=== PATIENT | female | born 1935 | race Caucasian/White ===

== ENCOUNTER 2019-01-20 12:21 | Outpatient (CLI) | payer MEDICARE, OTHER | END 2019-01-20 12:22 | disposition critical access hospital (66) | LOC: EMS 12:21 | PROVIDERS: ATTEND Surgery | DX: M54.2 Cervicalgia (principal); M25.562 Pain in left knee; W01.198A Fall on same level from slipping, tripping and stumbling with subsequent striking against other object, initial encounter; Y93.01 Activity, walking, marching and hiking; Y92.008 Other place in unspecified non-institutional (private) residence as the place of occurrence of the external cause | CPT/HCPCS: A0425; A0429 ==

== ENCOUNTER 2019-01-20 13:02 | Emergency (ER) | payer MEDICARE, OTHER ==
--- NOTE | 2019-01-20 13:02 | ED Physician Documentation ---
PD HPI Fall - Stated complaint Stated Complaint: GLF - History obtained from History obtained from: Patient - History of Present Illness Mechanism of injury: Tripped Fall distance: Standing position Where injury occurred: Other ([place]) Timing - onset: Today (Just prior to arrival) Injury(ies) location: Head, Neck, Left Uppper Extremity (Shoulder), Left Lower Extremity (Knee) Quality of pain: Pain Associated symptoms: No: LOC, AMS, Neck pain, Paresthesias, Dyspnea, Nausea / vomiting Similar symptoms before: Has not had sx before Recently seen: Not recently seen - Additional information Additional information: This is an 83-year-old woman who presents by ambulance after walking through a [place] and she stumbled over a block that was on the floor. Caused her to fall forward hitting the support post for the carport on the left side of her head, neck and shoulder. She also fell onto the left knee. She did not pass out. She was unable to get up off the ground so the ambulance was summoned and they assisted her up where she was able to stand on her feet but she felt very dizzy. Did not pass out. She has pain in her left knee and her left hip hurts a little but she says that a chronic problem and it needs to be replaced but she does not want to do that. She also thinks the ear ring that she was wearing cut her neck behind the ear. She denies chest pain, abdominal pain, nausea, palpitations or shortness of breath. Patient has no numbness or tingling into the arms or legs. She does take baby aspirin daily. She also started a prep today with a liquid diet for colonoscopy in 2 days. She is uncertain when her last tetanus vaccine is. 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".) Cardiac: denies: Chest pain / pressure, Palpitations Respiratory: denies: Dyspnea GI: denies: Abdominal Pain, Nausea, Vomiting, Diarrhea Musculoskeletal: denies: Neck pain Neurologic: denies: Generalized weakness, Focal weakness, Numbness, Syncope, Headache PD PAST MEDICAL HISTORY - Present Medications Home Medications: Ambulatory Orders Medication Instructions Recorded Confirmed Alendronate [Fosamax] 70 mg PO Q7D 01/20/19 01/20/19 Atenolol 25 mg PO 01/20/19 Furosemide 20 mg PO 01/20/19 Mecobalamin [B-12] 5,000 mcg PO 01/20/19 01/20/19 amLODIPine [Norvasc] 5 mg PO ONCE 01/20/19 01/20/19 raNITIdine [Zantac] 150 mg PO DAILY 01/20/19 01/20/19 - Allergies Allergies/Adverse Reactions: Allergies Allergy/AdvReac Type Severity Reaction Status Date / Time morphine Allergy Rash Verified 01/20/19 13:14 Sulfa (Sulfonamide Allergy Hives Verified 01/20/19 13:14 Antibiotics) PD ED PE NORMAL - Vitals Vital signs reviewed: Yes - General General: Alert and oriented X 3, No acute distress, Well developed/nourished - HEENT HEENT: Atraumatic, PERRL, EOMI, Moist mucous membranes - Neck Neck: Other (Remained in cervical collar until imaging could be obtained) - Cardiac Cardiac: RRR - Respiratory Respiratory: No respiratory distress - Abdomen Abdomen: Soft - Derm Derm: Normal color, Other (Less than 1 cm superficial laceration behind the left earlobe. There is no active bleeding or obvious bruising. There is bruising to the anterior left shoulder over the AC joint. There is bruising and abrasion to the left knee. Contusions to the dorsal aspect of the left hand and fingers with minor abrasions.) - Extremities Extremities: Other (Swelling and tenderness about the left knee. Limited range of motion about the left shoulder (she states that she has chronic degeneration in that shoulder but does not want a replacement). There is no bony tenderness in the hand or wrist.) - Neuro Neuro: Alert and oriented X 3, No motor deficit, No sensory deficit, Normal speech Eye Opening: Spontaneous Motor: Obeys Commands Verbal: Oriented GCS Score: 15 - Psych Psych: Normal mood, Normal affect Results - Vitals Vitals: Vital Signs - 24 hr 01/20/19 13:08 Temperature 36.5 C Heart Rate 55 L Respiratory 22 Rate Blood Pressure 176/67 H O2 Saturation 97 Oxygen O2 Source Room air - Labs Labs: Laboratory Tests 01/20/19 01/20/19 01/20/19 13:12 13:39 13:39 WBC 5.5 RBC 4.52 Hgb 14.1 Hct 42.5 MCV 94.2 MCH 31.3 H MCHC 33.2 RDW 13.2 Plt Count 169 MPV 8.0 Neut # (Auto) 3.7 Lymph # (Auto) 1.0 L [place] # (Auto) 0.5 Eos # (Auto) 0.3 Baso # (Auto) 0.0 Absolute Nucleated RBC 0.00 Nucleated RBC % 0.0 Sodium 139 Potassium 4.2 Chloride 108 Carbon Dioxide 21 Anion Gap 10.0 BUN 24 H Creatinine 1.0 Estimated GFR (MDRD) 53 L Glucose 120 H Calcium 11.5 H Urine Color COLORLESS Urine Clarity CLEAR Urine pH 6.0 Ur Specific [place] <=1.005 Urine Protein NEGATIVE Urine Glucose (UA) NEGATIVE Urine Ketones NEGATIVE Urine Occult Blood NEGATIVE Urine Nitrite POSITIVE H Urine Bilirubin NEGATIVE Urine Urobilinogen 0.2 (NORMAL) Ur Leukocyte Esterase MODERATE H Urine RBC 0-5 Urine WBC 6-10 H Ur Squamous Epith Cells FEW Squamous Urine Bacteria Few Ur Microscopic Review INDICATED Urine Culture Comments INDICATED PD MEDICAL DECISION MAKING - ED course Complexity details: re-evaluated patient, d/w patient, d/w family ED course: Obtained a head CT because the patient is on aspirin. CT was negative. C-spine CT was negative. X-rays of left shoulder and knee both showed significant degenerative changes. There was concern that there might be some peribronchial cuffing seen in the lungs on the chest x-ray. The patient says she has a chronic cough she is not feeling short of breath and she has a history of Sjogren's syndrome. I did not feel that specific chest x-ray was needed today. She was offered Tylenol for pain but the son did not want to wait the "20 minutes" it would take to get it so they are being discharged home. The patient has stood and ambulated on the leg without any difficulty. Departure - Departure Disposition: 01 Home, Self Care Clinical Impression: Multiple abrasions Contusion of shoulder, left Qualifiers: Encounter type: initial encounter Qualified Code(s): S40.012A - Contusion of left shoulder, initial encounter Contusion, fingers Qualifiers: Encounter type: initial encounter Finger: unspecified finger Damage to nail status: without damage Qualified Code(s): S60.00XA - Contusion of unspecified finger without damage to nail, initial encounter Condition: Good Instructions: ED Contusion Upper Ext, ED Contusion Lower Ext Follow-Up: doctor,your [Other] (Follow-up with your doctor at the [facility] in [place] as needed.) Comments: Keep the wounds clean and covered. May apply a small bit of antibiotic ointment. Ice can help with any pain or swelling. Tylenol if needed for pain. Follow-up primary care provider if needed.
[2019-01-20 13:23] LABS: BILIRUBIN,URINE NEGATIVE (NEGATIVE); GLUCOSE, URINE (UA) NEGATIVE (NEGATIVE); KETONES,URINE (UA) NEGATIVE (NEGATIVE); NITRITE,URINE POSITIVE (NEGATIVE); OCCULT BLOOD,URINE NEGATIVE (NEGATIVE); PROTEIN,URINE NEGATIVE (NEGATIVE); UROBILINOGEN,URINE 0.2 (NORMAL) E.U./dL (NORMAL)
[2019-01-20 13:24] LABS: CLARITY,URINE CLEAR (CLEAR); LEUKOCYTE ESTERASE, URINE MODERATE (NEGATIVE)
[2019-01-20 13:32] LABS: RBC,URINE 0-5 /HPF (0-5)
[2019-01-20 13:33] LABS: BACTERIA,URINE Few /HPF (None Seen); SQUAMOUS EPITHELIAL CELL,UR FEW Squamous (<= Few)
[2019-01-20 13:43] LABS: BASOPHILS % (AUTO) 0.7 %; EOSINOPHILS # (AUTO) 0.3 10^3/uL (0.0-0.7); EOSINOPHILS % (AUTO) 4.9 %; HGB - HEMOGLOBIN 14.1 g/dL (12.0-16.0); LYMPHOCYTES % (AUTO) 18.2 %; MEAN CORPUSCULAR HEMOGLOBIN 31.3 pg (27.0-31.0); MEAN CORPUSCULAR HGB CONC 33.2 g/dL (32.0-36.0); MEAN CORPUSCULAR VOLUME 94.2 fL (81.0-99.0); MONOCYTES # (AUTO) 0.5 10^3/uL (0.0-1.0); MONOCYTES % (AUTO) 9.3 %; NEUTROPHILS # (AUTO) 3.7 10^3/uL (1.5-6.6); NEUTROPHILS % (AUTO) 66.9 %; PLT - PLATELET COUNT 169 10^3/uL (130-450); RED BLOOD COUNT 4.52 10^6/uL (4.20-5.40); RED CELL DISTRIBUTION WIDTH 13.2 % (12.0-15.0); WHITE BLOOD COUNT 5.5 x10^3/uL (4.8-10.8)
[2019-01-20 13:51] LABS: CALCIUM 11.5 mg/dL (8.5-10.3)
--- NOTE | 2019-01-20 14:04 | CT Report ---
Reason: fall on blood thinners Procedure Date: 01/20/2019 Accession Number: [id number] / [id number] Procedure: CT - HEAD WO CPT Code: FULL RESULT: EXAM: CT HEAD EXAM DATE: 01/20/2019 01:49 PM. CLINICAL HISTORY: Fall, on blood thinners. COMPARISON: None. TECHNIQUE: Multiaxial CT images were obtained from the foramen magnum to the vertex. Reformats: Sagittal and coronal. IV contrast: None. In accordance with CT protocol optimization, one or more of the following dose reduction techniques were utilized for this exam: automated exposure control, adjustment of mA and/or KV based on patient size, or use of iterative reconstructive technique. FINDINGS: Parenchyma: No intraparenchymal hemorrhage. No evidence of mass, midline shift. Murray-white differentiation is distinct. Extraaxial Spaces: Normal for age. No subdural or epidural collections identified. Ventricles: Normal in size and position. Sinuses and Orbits: Sinuses demonstrate mucoperiosteal thickening in both maxillary sinuses as well as opacification of the right ethmoid air cells. The patient is status post endoscopic sinus surgery. Meatus to the right frontal sinus is opacified. Mastoid air cells are clear. Orbits are unremarkable. Bones: No evidence of fracture or calvarial defect. Other: None. IMPRESSION: Chronic sinus disease. No acute intracranial abnormality. RADIA
--- NOTE | 2019-01-20 14:08 | CT Report ---
Reason: trauma Procedure Date: 01/20/2019 Accession Number: [id number] / [id number] Procedure: CT - CERVICAL SPINE WO CPT Code: FULL RESULT: EXAM: CT CERVICAL SPINE WITHOUT CONTRAST DATE: 01/20/2019 01:50 PM. HISTORY: Trauma. Fall on blood thinners. COMPARISONS: None. TECHNIQUE: Thin-section axial images were acquired of the cervical spine without contrast. Post-processing: Coronal and sagittal reformats. Other: None. In accordance with CT protocol optimization, one or more of the following dose reduction techniques were utilized for this exam: automated exposure control, adjustment of mA and/or KV based on patient size, or use of iterative reconstructive technique. FINDINGS: Alignment: There is dextroconvex cervical scoliosis as well as 2 mm of anterolisthesis of C3 on C4 and 2 mm of anterolisthesis of C7 on T1. Bones: No fracture or bone lesion. Interspace Levels/Facets: C1-C2: Mild degenerative changes, no central canal stenosis. C2-C3: No osseous foraminal stenosis, no central canal stenosis. Complete loss of disk space height. C3-C4: Essentially complete loss of disk space height with moderate narrowing of the osseous neural foramen on the left. No central canal stenosis. C4-C5: Complete loss of disk space height, no central canal stenosis and mild narrowing of the osseous neural foramen bilaterally. C5-C6: Mild to moderate narrowing of the right neural foramen with no significant narrowing of the right neural foramen and no narrowing of the central canal. Complete loss of disk space height. C6-C7: Complete loss of disk space height without central canal stenosis with mild bilateral narrowing of the osseous neural foramen. C7-T1: No central canal or neural foraminal narrowing. Complete loss of disk space height. Musculature: Normal. No fatty atrophy. Other: The paravertebral and prevertebral soft tissues are unremarkable. The lung apices are clear. IMPRESSION: No evidence of acute traumatic injury to the osseous cervical spine. Multilevel degenerative changes. RADIA
--- NOTE | 2019-01-20 14:23 | XRAY Report ---
Reason: pain; trauma Procedure Date: 01/20/2019 Accession Number: [id number] / [id number] Procedure: XR - Knee 3 View LT CPT Code: FULL RESULT: EXAM: LEFT KNEE RADIOGRAPHY EXAM DATE: 01/20/2019 02:14 PM. CLINICAL HISTORY: Pain; trauma. COMPARISON: None. TECHNIQUE: 3 views. FINDINGS: Bones: Normal. No fractures or bone lesions. Joints: There is moderate joint space narrowing of both weightbearing compartments. Osteophytosis is seen along the patella. There is a joint effusion. There is chondrocalcinosis. Soft Tissues: Normal. No soft tissue swelling. IMPRESSION: Tricompartmental degenerative changes without definite fracture or dislocation detected. RADIA
--- NOTE | 2019-01-20 14:25 | XRAY Report ---
Reason: trauma;; pain Procedure Date: 01/20/2019 Accession Number: [id number] / [id number] Procedure: XR - Shoulder 3 View LT CPT Code: FULL RESULT: EXAM: LEFT SHOULDER RADIOGRAPHY EXAM DATE: 01/20/2019 02:14 PM. CLINICAL HISTORY: Trauma; pain. COMPARISON: None. TECHNIQUE: 3 views. FINDINGS: Bones: No fracture is detected. Joints: There is no glenohumeral or acromioclavicular dislocation as seen. There is [id number] contact at the glenohumeral relationship with sclerosis and subchondral cyst formation within the head of the humerus, advanced degenerative changes. Mild degenerative changes are also seen in the AC joint. Soft tissues: Visualized hemithorax demonstrates a prominent pulmonary artery and peribronchial cuffing versus patchy airspace opacities. 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 Correlate questionable pulmonary radiographic findings to physical examination to determine whether a chest radiograph is warranted. RADIA
[2019-01-20] MEDS ORDERED: BACITRACIN OINT TOP ONE (14:43)
[2019-01-20 15:20] VITALS: BP 160/70
== END 2019-01-20 15:19 | disposition home or self-care (01) ==
LOC: ED 13:02
DX: S01.312A Laceration without foreign body of left ear, initial encounter (principal); S40.012A Contusion of left shoulder, initial encounter; S60.00XA Contusion of unspecified finger without damage to nail, initial encounter; S80.212A Abrasion, left knee, initial encounter; W01.198A Fall on same level from slipping, tripping and stumbling with subsequent striking against other object, initial encounter; Y93.01 Activity, walking, marching and hiking; Y92.009 Unspecified place in unspecified non-institutional (private) residence as the place of occurrence of the external cause; R42 Dizziness and giddiness; M35.00 Sjogren syndrome, unspecified
CPT/HCPCS: 36415; 70450; 72125; 73030; 73562; 80048; 81001; 85025; 87086; 87181; 99283; A9270; 81003